=== PATIENT | female | born 1975 | race Caucasian/White ===

== ENCOUNTER 2025-07-01 11:44 | Emergency (ER) | payer BC, SELFPAY ==
[2025-07-01 11:53] VITALS: BP 116/82
[2025-07-01 13:00] LABS: Hematocrit 42.8 % (37.0-47.0); Hemoglobin 14.0 g/dL (12.0-16.0); Mean Corp Hgb Conc. 32.7 g/dL (33.0-37.0); Mean Corpuscular Volume 88.1 fL (81.0-99.0); Nucleated Red Blood Cells % 0 %; Platelet Count 250 10^3/uL (130-400); Red Cell Dist. Width 13.8 % (11.5-14.5)
[2025-07-01 13:29] LABS: ALT (SGPT) 29 U/L (0-35); AST (SGOT) 26 U/L (14-36); Albumin 4.5 g/dl (3.5-5.0); Alkaline Phosphatase 74 U/L (38-126); Blood Urea Nitrogen 14 mg/dl (7-17); Calcium 9.3 mg/dl (8.4-10.2); Carbon Dioxide 31 mmol/L (22-30); Chloride 101 mmol/L (98-107); Glucose 98 mg/dl (70-99); Potassium 4.6 mmol/L (3.5-5.1); Sodium 136 mmol/L (135-145); Total Protein 7.1 g/dl (6.3-8.2); eGFR > 60.00
--- NOTE | 2025-07-01 15:15 | ED.GENMED ---
History of Present Illness
General
Chief Complaint: Dizziness
Source: patient
Exam Limitations: none
Time Seen by Provider: 07/01/25 14:50
Nursing documentation reviewed up to this point in time: agreed with
History of Present Illness
History of Present Illness:
49-year-old female perimenopausal insulin resistance given a prescription for Mounjaro, took first dose yesterday today 3 hours ago was sitting down drinking a cup of coffee felt a feeling of spinning forward like she was floating. She did vomit
could not get her words out, daughter called 911, no seizure activity, blood sugar was 95, felt some anxiety pressure into her chest, into her arm, had a glass of wine last evening which is not uncommon for her she has had vaginal spotting told that
she had fibroids not a candidate for hysterectomy, no fevers, feels pretty much back to normal now
She tells me that the symptoms are different than her prior vasovagal syncope episode and vertigo episode
Past History
Past History
ED Past Medical History: Psychiatric; Negative IDDM or NIDDM
ED Past Surgical History: Negative Cardiac
Social History
Tobacco: Non-smoker
Alcohol: None
Drug: None
Personal:
Living: with family
Employment: Employed
Family History
Family History: Hypertension; Negative Early CAD
Phy Exam
Physical Exam
Physical Exam:
Physical Exam
General: no apparent distress, not acutely ill
Neck: No tongue bite
Heart: s1/s2 regular rate and rhythm, no murmur. equal radial pulses.
Lungs: no acute respiratory distress.
Abdomen: Nontender
Neuro: alert and oriented. no focal neurological deficits normal finger-nose bilaterally no facial
Skin: no rash
Psychiatric: well kept. interactive and cooperative
Extremities: no edema.
Course
Orders/Labs/Results
Orders:
Orders
07/01/25 11:58
Electrocardiogram (*1) Urgent
Reason for Study: Vertigo / Dizzy
EKG- Treatment ONCE
07/01/25 12:15
Complete Blood Count/With Diff Urgent
Comprehensive Metabolic Panel Urgent
07/01/25 15:05
CT Head W/o Iv Contrast Urgent
Comment:
Reason For Exam: dizzy speach abnormality
07/01/25 15:08
Cardiac Monitoring- Treatment ONCE
07/01/25 15:16
Troponin I Urgent
Abnormal Lab Results
07/01/25
12:15
WBC 4.4 L 10^3/uL
(4.8-10.8)
MCHC 32.7 L g/dL
(33.0-37.0)
MPV 11.1 H fL
(7.4-10.4)
Carbon Dioxide 31 H mmol/L
(22-30)
07/01/25 12:15
07/01/25 12:15
Vital Signs
Initial and Last Documented VS:
Initial Vital Signs
Temp Pulse Resp BP Pulse Ox
98.7 F 83 18 116/82 100
07/01/25 11:53 07/01/25 11:53 07/01/25 11:53 07/01/25 11:53 07/01/25 11:53
Last Documented Vital Signs
Temp Pulse Resp BP Pulse Ox
98.7 F 72 15 124/72 97
07/01/25 11:53 07/01/25 17:01 07/01/25 17:01 07/01/25 17:00 07/01/25 17:01
MDM/Problems Addressed
Differential Diagnosis Includes:
Medication side effect hypoglycemia less likely arrhythmia electrolyte abnormality CVA
MDM/Problems Addressed:
Forward rotatory dizziness slurred speech
Chronic conditions affecting care: DM
Acute Exacerbation and/or Progression of Chronic Illness: DM
*Pulse Oximetry
SaO2: 100
Oxygen Mode of Delivery: Room air
Patient hypoxic: no
*Critical Care Note
Total Time (30-74mins, 75-104mins- exclusive of procedures): Not Applicable
Update Note
Update Note:
5:20 PM update patient resting comfortably normal sinus rhythm workup noted and unremarkable patient feels well reviewed adverse drug reactions to her medications neurologic complaints are seen albeit not as commonly is GI complaints have
recommended she follow-up with her treating physician to discuss her symptoms and/or cessation of her medication,
ED Attending Note
-
Portions of this chart may have been created with voice recognition software.� Occasional wrong word or��sound alike� substitutions may have occurred due to the inherent limitations of voice recognition software.
Discharge Plan
Departure
Patient Disposition: Home (Routine Discharge)
Date of Disposition: 07/01/25
Time of Disposition: 17:22
Patient with high blood pressure during this ER visit?: No
Condition: Good
Discharge Problem:
Dizziness
Instructions: Dizziness, Nonvertigo, (DC)
Prescriptions:
No Action
B/C Pill
1 tab PO . DIRECTED
cetirizine 10 MG tablet
10 mg PO DAILY
azelastine 1 SPRAY aerosol,spray
1 spray intranasal BID
montelukast 10 MG tablet
10 mg PO Daily
sertraline 50 MG tablet
50 mg PO DAILY
Referrals:
Niharika Garibay DO [Family Provider, Family Practice]
Katt Perrin DO [Non-Admitting Privileges, Gynecology] - Next open appointment
Activity Restrictions/Additional Instructions:
Talk to your doctors about your medications, and need to stop and/or change
Interventions
Interventions:
*Risk Screen - Suicide Last Done: 07/01/25 11:53
*General Assessment Last Done: 07/01/25 11:53
*Neglect/Abuse Screening Last Done: 07/01/25 11:53
*ED- Fall Risk Assessment Last Done: 07/01/25 14:19
ED- Neurological Assessment Last Done: 07/01/25 14:19
ED- Cardiac Assessment Last Done: 07/01/25 15:32
ED Swallowing Screen Last Done: 07/01/25 14:19
Discharge Date and Time
Print Language: KAZAKH
[2025-07-01 15:52] LABS: Troponin I < 0.012 ng/ml
[2025-07-01 16:47] VITALS: BP 126/76
[2025-07-01 17:00] VITALS: BP 124/72
== END 2025-07-01 18:19 | disposition home or self-care (01) ==
LOC: EMR 11:44
PROVIDERS: Emergency Medicine; EMERGENCY PHYSICIAN Emergency Medicine; FAMILY PHYSICIAN Family Medicine
DX: R42 Dizziness and giddiness (principal); E11.9 Type 2 diabetes mellitus without complications
CPT/HCPCS: 99284; 70450; 80053; 84484; 85025; 93005